=== PATIENT | female | born 1945 | race Hispanic/Latino ===

== ENCOUNTER 2017-09-22 12:12 | Emergency (ER) | payer MEDICARE ==
[~2017-09-22] VITALS: Ht 157.5 cm; Wt 86.2 kg
[2017-09-22] MEDS ORDERED: AZITHROMYCIN 500MG/NS 250 ML 250 ML IV STA (13:32)
[2017-09-22] MEDS ORDERED: KETOROLAC TROMETHAMINE 30 MG/ML VIAL IV STA (13:32)
[2017-09-22] MEDS ORDERED: DEXAMETHASONE SOD PHOS 10 MG/1 ML VIAL IV ONE (13:45)
[2017-09-22] MEDS ORDERED: ALBUTEROL/IPRATROPIUM 3 ML NEB NEB ONE (13:45)
[2017-09-22] MEDS ORDERED: CEFTRIAXONE SOD 1 GM VIAL IV ONE (13:45)
--- NOTE | 2017-09-22 15:03 | Diagnostic Imaging Report ---
PROCEDURE: Frontal and lateral views of the chest. COMPARISON: None. INDICATIONS: CHEST PAIN FINDINGS: Lines/tubes: None. Lungs: The lungs are well inflated and grossly clear. There is no evidence of pneumonia or pulmonary edema. Pleura: There is no pleural effusion or pneumothorax. Heart and mediastinum: Mild enlargement of the cardiac silhouette. There is tracheal deviation to the right secondary to prominence of the aortic arch. Bones: No acute bony abnormality. Degenerative changes in the thoracic spine. IMPRESSION: 1. mild enlargement of the cardiac silhouette, without acute cardiopulmonary abnormalities. 2. Prominence of the aortic arch, likely resulting in rightward tracheal deviation. This may be secondary to tortuosity versus aneurysmal dilation. Chase Jeronimo M.D. Dictated by: Chase Jeronimo M.D. on 09/22/2017 at 15:12 Electronically approved by: Chase Jeronimo M.D. on 09/22/2017 at 15:12
[2017-09-22 16:32] LABS: BASOPHILS % 0.2 % (0.0-1.0); EOSINOPHILS % 0.2 % (0.0-6.0); HEMATOCRIT 43.8 % (34.2-44.1); HEMOGLOBIN 14.1 g/dL (12.0-16.0); LYMPHOCYTES # (AUTO) 2.3 (1.0-3.2); LYMPHOCYTES % 44.7 % (18.0-39.1); MEAN CORPUSCULAR HEMOGLOBIN 28.3 pg (28-32); MEAN CORPUSCULAR HGB CONC 32.2 g/dL (31-35); MONOCYTES # (AUTO) 0.3 (0.2-0.8); MONOCYTES % 6.8 % (4.4-11.3); NEUTROPHILS # (AUTO) 2.4 (2.1-6.9); NEUTROPHILS % 47.7 % (38.7-80.0); PLATELET COUNT 421 x10e3/uL (140-360); RED BLOOD COUNT 4.98 x10e6/uL (3.6-5.1); RED CELL DISTRIBUTION WIDTH 14.7 % (11.7-14.4)
[2017-09-22 16:49] LABS: INR 0.87; PROTHROMBIN TIME 12.3 seconds (11.9-14.5)
[2017-09-22 16:55] LABS: ALANINE AMINOTRANSFERASE 12 IU/L (0-55); ALBUMIN 3.8 g/dL (3.5-5.0); ALBUMIN/GLOBULIN RATIO 0.8 (0.8-2.0); ALKALINE PHOSPHATASE 78 IU/L (40-150); ANION GAP 15.3 mmol/L (8-16); BLOOD UREA NITROGEN 8 mg/dL (7-26); BUN/CREATININE RATIO 10 (6-25); CALCIUM 10.1 mg/dL (8.4-10.2); CARBON DIOXIDE 24 mmol/L (22-29); CHLORIDE 104 mmol/L (98-107); CREATINE KINASE 29 IU/L (29-168); CREATININE, SERUM 0.78 mg/dL (0.57-1.11); EST GLOMERULAR FILTRATION RATE > 60 ML/MIN (60-); GLUCOSE 115 mg/dL (74-118); LIPASE 7 U/L (8-78); POTASSIUM 3.3 mmol/L (3.5-5.1); SODIUM 140 mmol/L (136-145)
[2017-09-22 17:04] LABS: TROPONIN I 0.004 ng/mL (0-0.300)
[2017-09-22] MEDS ORDERED: SODIUM CHLORIDE 0.9% 250ML 250 ML ONE (18:06)
[2017-09-22] MEDS ORDERED: KETOROLAC TROMETHAMINE 30 MG/ML VIAL ONE (18:06)
[2017-09-22] MEDS ORDERED: DEXAMETHASONE SOD PHOS 10 MG/1 ML VIAL ONE (18:06)
[2017-09-22] MEDS ORDERED: CEFTRIAXONE SOD 1 GM VIAL ONE (18:06)
[2017-09-22] MEDS ORDERED: AZITHROMYCIN 500 MG VIAL ONE (18:06)
[2017-09-22] MEDS ORDERED: ALBUTEROL/IPRATROPIUM 3 ML NEB ONE (18:45)
== END 2017-09-22 20:30 | disposition home or self-care (01) ==
LOC: ER 12:12
DX: R50.9 Fever, unspecified (principal); R05 Cough; J20.9 Acute bronchitis, unspecified
CPT/HCPCS: 36415; 71020; 80053; 82550; 82553; 83690; 83880; 84484; 85025; 85610; 85730; 87040; 87400; 93005; 99284; J0456; J0696; J1100; J1885; J7050